=== PATIENT | male | born 1985 ===

== ENCOUNTER 2017-06-16 17:38 | Day surgery (SDC) | payer OTHER ==
[~2017-06-16] VITALS: Ht 172.7 cm; Wt 81.8 kg
--- NOTE | ~2017-06-16 | ER ---
PATIENT'S NAME: BISHNU FISH [facility] AGE: 32 Y [address] ROOM: [place] [address] LOCATION: [facility] ADMIT DATE: 06/16/2017 ER/Outpatient Report DISCHARGE DATE: FAMILY PHYSICIAN: PHYSICIAN, NO ATTENDING PHYSICIAN: Robby Noe Time of Evaluation: 1750 hours. HISTORY OF PRESENT ILLNESS: A 32-year-old male presents complaining of abdominal pain. The patient said that it started yesterday and progressively has gotten worse. The patient was seen at [facility] where lab work and x-rays were done, and he was told that it was probably just related to constipation. The patient went home, pain progressively got worse, so he presented to the emergency room. ALLERGIES: NONE. HOME MEDICATIONS: None. MEDICAL HISTORY: He has no chronic diseases. SURGERIES: None. SOCIAL HISTORY: He does smoke one pack per month. Alcohol, just occasionally. REVIEW OF SYSTEMS: GENERAL: General health good up until about 48 hours. HEENT: No recent headache or sore throat. RESPIRATORY: Denies any shortness of breath, cough. GASTROINTESTINAL: Includes abdominal pain started periumbilical, but it is localized more to the right lower quadrant. He denies any diarrhea. He has been somewhat constipated. GENITOURINARY: No flank pain. No dysuria. PHYSICAL EXAMINATION: VITAL SIGNS: His blood pressure is 149/100, his temperature is 96.8, his respiratory rate 16, pulse 60, O2 saturations 98%. GENERAL APPEARANCE: A healthy-appearing male. HEENT: His sclerae were clear. His oral membranes were moist. LUNGS: His lungs sounded clear throughout. PATIENT'S NAME: BISHNU FISH [facility] AGE: 32 Y [address] ROOM: [place] [address] LOCATION: [facility] ADMIT DATE: 06/16/2017 ER/Outpatient Report DISCHARGE DATE: FAMILY PHYSICIAN: PHYSICIAN, NO ATTENDING PHYSICIAN: Robby Noe ABDOMEN: Somewhat firm but he had some guarding and point tenderness, right lower quadrant. Bowel sounds were somewhat hypoactive. LABORATORY DATA AND X-RAYS: CBC: White count at [facility] was 10.4. His CMS here was unremarkable. Lipase was 82. His urine was yellow, clear, did show 2-5 white cells with some moderate bacteria. CT abdomen and pelvis with IV contrast, Dr. Hollis's interpretation was a possible early acute appendicitis. There was some dilatation of the appendix about 10 to 11 mm. ASSESSMENT: Early acute appendicitis. PLAN: Dr. Bauer was consulted and agreed to see the patient here in the emergency room. IV was started here. He was given 4 of Zofran and 2 of morphine for pain control IV. AIDAN PANIAGUA FOR MD PANFILO MARTINEZ/modl /[id number] d: 06/16/17 2247 t: 07/07/17 0859, OUTPATIENT REPORT
--- NOTE | ~2017-06-16 | OR ---
PATIENT'S NAME: BISHNU FISH [facility] AGE: 32 Y [address] ROOM: [address] [address] LOCATION: [facility] [place] ADMIT DATE: 06/16/2017 OR/Procedure Report DISCHARGE DATE: FAMILY PHYSICIAN: PHYSICIAN, NO ATTENDING PHYSICIAN: Jax Bauer SURGEON: Jax Bauer MD REFRACTIVE SURGEON: DATE OF PROCEDURE: 06/16/2017 PREOPERATIVE DIAGNOSIS: Acute appendicitis. POSTOPERATIVE DIAGNOSIS: Acute appendicitis. PROCEDURE PERFORMED: Laparoscopic appendectomy. ANESTHESIA: General endotracheal. ESTIMATED BLOOD LOSS: 10 mL. SPECIMEN: Appendix. REASON FOR PROCEDURE: The patient is a 32-year-old gentleman who presented to the emergency room with a 2-day history of progressive right lower quadrant pain. His white count was at the upper limits of normal. He had no fever. He was exquisitely tender at McBurney's point. CT scan showed evidence of acute appendicitis. He elected to proceed with appendectomy. FINDINGS: The patient had a markedly swollen and inflamed appendix consistent with acute appendicitis. There was no perforation. PROCEDURE IN DETAIL: The patient was taken to the operating suite and placed in the supine position. After general endotracheal anesthesia was obtained, the abdomen was prepped with ChloraPrep and sterilely draped. Marcaine was infiltrated into the incision sites. A small infraumbilical incision was made. The umbilicus was elevated and a Veress needle was used to obtain a pneumoperitoneum. A 5 mm trocar was then passed across the abdominal wall. Next, a 5 mm left lower quadrant and 12 mm right lower quadrant trocars were all placed under direct visualization. The appendix was extending down into the pelvis near the bladder. It was markedly swollen and inflamed. There was no evidence of perforation or necrosis. We had to mobilize the cecum somewhat and the mesoappendix near the base. It was somewhat adherent down into the retroperitoneal area. We were able to dissect around the base of the appendix and then fired the endoscopic ALFIE stapler dividing the base of the appendix. We were then able to divide some more adhesions and free up the appendix including the mesoappendix to some extent. A second load was then fired PATIENT'S NAME: BISHNU FISH [facility] AGE: 32 Y [address] ROOM: [id number] [place], [place] [address] LOCATION: [facility] [place] ADMIT DATE: 06/16/2017 OR/Procedure Report DISCHARGE DATE: FAMILY PHYSICIAN: PHYSICIAN, NO ATTENDING PHYSICIAN: Jax Bauer across the mesoappendix including the appendiceal artery. There was no bleeding. The appendix was placed in an endo-retrieval bag and brought out through the right lower quadrant opening. The pelvis and right lower quadrant were irrigated and all irrigation was removed. The staple line was intact. The fascia in the right lower quadrant was closed with a Vicryl suture. The skin incisions were closed with subcuticular Monocryl. Benzoin, Steri-Strips, and gauze dressings were applied. POSTPROCEDURE PLAN: The patient will be sent to recovery and then to the floor. We will gradually advance the diet as tolerated. He will receive pain medicines as necessary. Hopefully, if feeling up to it, he can go home in the morning. MD ANGEL LAIRD/altagracial /[id number] d: 06/16/17 2355 t: 06/18/17 0947, OPERATIVE SUMMARY
--- NOTE | ~2017-06-16 | HP ---
PATIENT'S NAME: BISHNU FISH [facility] AGE: 32 Y [address] ROOM: [place] [address] [place] [facility] [place]: 06/16/2017 History & Physical DISCHARGE DATE: FAMILY PHYSICIAN: PHYSICIAN, NO ATTENDING PHYSICIAN: Jax Bauer DATE OF SERVICE: 06/16/2017 CHIEF COMPLAINT: Right lower quadrant abdominal pain. HISTORY OF PRESENT ILLNESS: The patient is a 32-year-old male who started having pain about 48 hours ago, it was initially somewhat periumbilical and did not seem critically severe. He rated it 2 for the first day or so. He did have some decreased appetite. Then, over the last 24 hours, the pain has moved down to the right lower quadrant, got much more severe. He has had some nausea and an episode of vomiting. No fevers. No history of pain similar to this in the past. The pain is aggravated by any movement or lying on his right side. He has had no diarrhea or constipation issues. He has no history of inflammatory bowel disease or Crohn disease. He denies any dysuria or blood in his urine. He was seen at [facility] and then sent to [facility] Emergency Room. Here, he was found to have a white count at the upper limits of normal. A CT scan, however, showed a dilated appendix. PAST MEDICAL HISTORY: Unremarkable. PAST SURGICAL HISTORY: He has had no previous surgeries. MEDICATIONS: He takes no medications on a regular basis. ALLERGIES: HE HAS NO KNOWN ALLERGIES. SOCIAL HISTORY: The patient is . He has kids. He smokes occasionally, but a pack per month. Drinks alcohol occasionally, but no history of alcohol abuse or illegal drug use. REVIEW OF SYSTEMS: Documented on the nursing assessment form. This has been reviewed with the patient. PATIENT'S NAME: BISHNU FISH [facility] AGE: 32 Y [address] ROOM: [place] [address] [place] [facility] [place]: 06/16/2017 History & Physical DISCHARGE DATE: FAMILY PHYSICIAN: PHYSICIANCLIFTON ATTENDING PHYSICIAN: Jax Bauer PHYSICAL EXAMINATION: GENERAL: The patient is a well-nourished, overall healthy-appearing young man. He does appear to be in some discomfort. VITAL SIGNS: Blood pressure 149/100, pulse 60, respirations 16, temperature 96.8, and saturations are 98% on room air. HEENT: Pupils are equal. There is no scleral icterus. External ears, nose, and eyelids unremarkable. The oropharynx is clear without lesions or exudate. There is a well-healed scar in his chin. NECK: Trachea is midline. There is no masses or adenopathy. Breathing is nonlabored. LUNGS: Clear to auscultation without rales, rhonchi, or wheezing. HEART: Regular rate and rhythm. ABDOMEN: Soft. It is not visibly distended. He does have some hypoactive bowel sounds. He has some [id number] left lower quadrant pain, but fairly severe right lower quadrant pain. He does have some guarding. EXTREMITIES: No peripheral edema. No cyanosis or clubbing. No obvious deformities. He moves all 4 extremities okay. ASSESSMENT: A 32-year-old male with probable acute appendicitis. I discussed the diagnosis with him as well as the risks and benefits of surgical intervention. PLAN: Mr. Fish is agreeable to proceeding with laparoscopic appendectomy. He will receive preoperative antibiotics. MD ANGEL LAIRD/rusty /[id number] D: [id number] T: [id number] HISTORY & PHYSICAL
[2017-06-16 18:08] LABS: BILIRUBIN URINE NEGATIVE (NEGATIVE); BLOOD URINE NEGATIVE /UL (NEGATIVE); COLOR URINE YELLOW (YELLOW); GLUCOSE URINE NEGATIVE (NEGATIVE); KETONE URINE NEGATIVE (NEGATIVE); LEUKOCYTES URINE 25 /UL (NEGATIVE); NITRITE URINE NEGATIVE (NEGATIVE); PROTEIN URINE NEGATIVE (NEGATIVE); SPEC GRAVITY URINE 1.015 (1.003-1.035); TURBIDITY URINE CLEAR (CLEAR); UROBILINOGEN URINE NORMAL (NORMAL)
[2017-06-16 18:15] LABS: BACTERIA URINE MODERATE (NEGATIVE); EPITHELIAL URINE 0-2 #/HPF (NEGATIVE); RBC URINE NEGATIVE #/HPF (NEGATIVE)
[2017-06-16 18:16] LABS: MUCUS URINE 3+ (NEGATIVE)
[2017-06-16 18:37] LABS: ALBUMIN 4.3 gm/dL (3.5-5.0); ALK PHOS 91 IU/L (33-138); ALT 55 IU/L (12-78); ANION GAP 11.7 (10.0-19.0); AST 25 IU/L (10-40); BLOOD UREA NITROGEN 9 mg/dL (6-24); CALCIUM 9.2 mg/dL (8.5-10.5); CHLORIDE 106 mMol/L (96-110); CO2 24 mMol/L (22-32); CREATININE 0.8 mg/dL (0.6-1.3); POTASSIUM 3.7 mMol/L (3.7-5.1); SODIUM 138 mMol/L (135-145); TOTAL BILIRUBIN 0.7 mg/dL (0.0-1.5); TOTAL PROTEIN 8.9 g/dL (6.0-8.4)
--- NOTE | 2017-06-17 06:43 | NUR ---
32 Year old pt. admitted to floor from surgery for appy. No past medical history. No home meds. RA. VSS. 3 lap sites on abdomen - top one is bloody, otherwise clean and intact. Pneumatics placed. [place] x1 for pain of 2. Walked in halls x1. Up to BR. Saline locked. Tolerating regular diet well. Cooperative and pleasant with cares. Possible d/c today.
[2017-06-17] MEDS ORDERED: NORCO 5-325 TA1 EACH PO (10:17)
--- NOTE | 2017-06-17 11:00 | NUR ---
DISCHARGE: Pt. was educated on lap appendectomy d/c instructions, incision care, and new medication: norco. Advised on smoking cessation. Patient verbalized understanding of teaching. No questions or concerns. Left with all belongings and prescriptions. IV removed by primary nurse. Taken to front door by aide and driven home by significant other.
--- NOTE | 2017-06-17 11:07 | NUR ---
PT IS ALERT AND ORIENTED. VSS ON ROOM AIR. IV DC'D WITH NO COMPLICATIONS. DRESSING CLEAN AND INTACT. SMALL AMOUNT OF DRAINAGE TO MIDDLE ABDOMINAL ONE. NO COMPLAINTS OF PAIN, JUST TENDERNESS. NO PAIN MEDICINE GIVEN. PT WAS AMBULATED TO THE ER DOORS AND DROVE HOME HIMSELF. PERMISSION GIVEN BY LYNNE TREJO PA-C.
== END 2017-06-17 11:00 | disposition disaster alternative care site (69) ==
LOC: GMED 17:38 → GMSU 22:02 → GMED 22:02 → GSDC 22:02 → GMSU 06-17 11:00
PROVIDERS: Physician Assistant Medical
PROC: 0DTJ4ZZ Resection of Appendix, Percutaneous Endoscopic Approach (ICD-10-PCS; principal; 2017-06-16)
DX: K35.3 Acute appendicitis with localized peritonitis (principal); F17.210 Nicotine dependence, cigarettes, uncomplicated
CPT/HCPCS: J1335; J2001; J2270; J2405; J7030